=== PATIENT | female | born 1950 | race Caucasian/White ===

== ENCOUNTER 2018-12-01 04:40 | Inpatient (IN) | payer OTHER ==
[~2018-12-01] VITALS: Ht 157.5 cm; Wt 117.7 kg
[~2018-12-01 04:40] MED LIST: LOSARTAN POTAS100 MG; TRAMADOL50 MG
[2018-12-01 04:55] VITALS: Ht 157.5 cm; Wt 117.7 kg
--- NOTE | 2018-12-01 05:19 | NUR ---
PT PRESENTS TO ER TODAY WITH C/O OF CHEST PAIN THAT STARTED APPROX 5 HRS AGO. PT STATES THAT PAIN IS PRESSURE LIKE AND NON-RADIATING. PT RATES HER PAIN A 4/10. PT DENIES ANY SOB, PT LUNG SOUNDS ARE CLEAR IN ALL ENCARNACION WITH AUSCULTATION. PT ALSO REPORTS SHE WAS UNABLE TO SLEEP LAST NIGHT BECAUSE SHE WAS WORRIED ABOUT HER HIGH BP READING AT HOME. PT REPORTSHER BP WAS 147/106 AT HOME. PT IS A/O X4. RESP ARE EQUAL AND UNLABORED. NO ACUTE DISTRESS NOTED. FAMILY AT BEDSIDE.
[2018-12-01 05:30] LABS: BASOPHIL % 0.2 % (0-2); PLATELET COUNT 346 x10^3mcL (130-400)
[2018-12-01 05:32] LABS: RED CELL DISTRIBUTION WIDTH 16.3 % (11.5-14.5)
[2018-12-01 05:33] LABS: CALCIUM 8.2 mg/dL (8.5-10.1); CARBON DIOXIDE 23.8 mmol/L (21-32); CHLORIDE SERUM 106 mmol/L (98-107); CREATININE SERUM 0.9 mg/dL (0.6-1.0); GFR1 > 60 mL/min; GLUCOSE SERUM 112 mg/dL (74-106); POTASSIUM SERUM 4.1 mmol/L (3.5-5.1); SODIUM SERUM 141 mmol/L (136-145)
[2018-12-01 05:43] LABS: ALKALINE PHOSPHATASE 91 U/L (46-116); ALT/SGPT 14 U/L (14-59); AST/SGOT 13 U/L (15-37); BILIRUBIN TOTAL 0.4 mg/dL (0.20-1.00); TOTAL PROTEIN, SERUM 7.2 g/dL (6.4-8.2)
[2018-12-01] MEDS ORDERED: LEVOTHYROXIN0.025 M2 PO (06:21)
[2018-12-01] MEDS ORDERED: XARELTO20 M1 PO (06:21)
[2018-12-01] MEDS ORDERED: CARVEDILOL12.5 M1 PO (06:22)
--- NOTE | 2018-12-01 06:26 | NUR ---
PT REFUSING MORPHINE AT THS TIME. PT RATING HER PAIN A 2/10. MD BELLO MADE AWARE.
[2018-12-01] MEDS ORDERED: ROBAXIN500 MG PO (06:41)
--- NOTE | 2018-12-01 07:11 | NUR ---
TWO ATTEMPTS AT IV START WITHOUT SUCCESS.
--- NOTE | 2018-12-01 07:27 | NUR ---
REPORT RECEIVED, PT SITTING UPIN BED, IN NAD. DENIES ANY CP OR SOB AT THIS TIME, FAMILY AT BEDSIDE. IV INSERTED TO RT UPPER ARM , FIRST ATTEMPT,PT TOLERATED WELL. VSS. WAIITMG FOR DISPO. SAFETY PRECAUTIONS IN PLACE, WILL CONT TO MONITOR.
--- NOTE | 2018-12-01 08:29 | NUR ---
REPORT GIVEN TO LEXA BOWMAN, UPDATE DON STATUS, ALBS AND VITALS. PT STABLE FOR TRANSFER. PT IN NAD.
[2018-12-01 08:34] LABS: CHOLESTEROL/HDL RATIO 2.9; MAGNESIUM 2.3 mg/dL (1.8-2.4); PHOSPHOROUS 3.5 mg/dL (2.5-4.9)
--- NOTE | 2018-12-01 08:59 | NUR ---
RECEIVED PATIENT FROM ED. AWAKE/ALERT/ORIENTED X4, WALK WITH WALKER TO BATHROOM AND BACK TO BED VERY STEADY GAIT, NO WEAKNESS NOTED. C/O HEADACHE 01/12. INFORM PATIENT WILL GET PATIENT ADMITTED AND WILL GIVE SOMETHING FOR MONET, DTR AT BEDSIDE. TELE #17 PL[address] ON PATIENT, AFIB W/ HR 81, CONT TO MONITOR.
--- NOTE | 2018-12-01 10:27 | NUR ---
PATIENT SAT UP IN BED WITH FAMILY MEMBERS AT BEDSIDE, SOLID WASTE DISPOSAL MANAGER INTERVIEW PATIENT. NORCO 1 TAB AND ALL PO MEDS ADMINISTERED. MONET 01/12. PATIENT TOLERATED PILLS WELL. CONT TO MONITOR.
[2018-12-01 10:39] VITALS: BP 147/68
--- NOTE | 2018-12-01 11:00 | NUR ---
DR. ART ROUND WITH RESIDENT DISCUSS POC WITH PATIENT AND FAMILY MEMBERS AT BEDSIDE, PLAN FOR CARDIAC WORKUP AND CARDIO CONSULT.
[2018-12-01 13:10] VITALS: BP 105/51
--- NOTE | 2018-12-01 14:09 | NUR ---
PATIENT UP TO BATHROOM AND BACK TO BED, NO COMPLAIN. FAMILY MEMBER REMAIN AT BEDSIDE. PT TOLERATED CARDIAC DIET, NO N/V. CONT TO MONITOR.
[2018-12-01 16:28] VITALS: BP 116/56
--- NOTE | 2018-12-01 16:38 | NUR ---
PATIENT RESTING IN BED WITH FAMILY MEMBERS AT BEDSIDE, DR. GOLDBERG SEEN PATIENT FOR CONSULT AT THIS TIME.
--- NOTE | 2018-12-01 17:51 | NUR ---
PATIENT SAT UP IN CHAIR EATING HER DINNER NO COMPLAINS, FAMILY MEMBERS AT BEDSIDE. XARELTO PO ADMINISTERED. NEEDS MET. CALL LIGHT WITHIN REACH.
--- NOTE | 2018-12-01 19:45 | NUR ---
RECEIVED REPORT FROM AM NURSE. PT AAOX4, FOLLOW COMMANDS. ABLE TO MAKE NEEDS KNOWN. TELE#17 READING A-FIB. DENIES CP/PRESSURE. C/O HEADACHE RATES AT 5/10 PAIN. MEDICATED WITH PRN TYLENOL PER JUN. PALPABLE PULSES TO ALL EXTREMETIES. BLE PITTING EDEMA NOTED. LUNG SOUNDS CTA. BREATHING EVEN AND UNLABORED ON RA. NO SOB NOTED. NO ACUTE DISTRESS NOTED. ABD SOFT AND NONDISTENDED. ACTUVE BS X4 QUAD. DENIES N/V/D. LAST BM 12/01/18. VOIDS FREELY BRP. AMBULATORY. IV TO CORTEZ SL FLUSHING WELL. SITE FREE FROM REDNESS AND SWELLING. BED AT LOWEST SETTING. SIDE RAILS X2 UP. CALL LIGHT WITHING REACH. WILL CONTINUE TO MONITOR.
[2018-12-01 20:14] VITALS: BP 113/60
--- NOTE | 2018-12-01 21:40 | NUR ---
PT STATES RELIEF OF H/A PAIN. RATES PAIN AT 2/10. PT C/O ANXIETY. RECEIVED ORDER FROM DR WALKER FOR ATIVAN PO. MEDICATED WITH ATIVAN PRN PER JUN. WILL CONTINUE TO MONITOR.
--- NOTE | 2018-12-01 23:18 | NUR ---
PT C/O INSOMNIA, STATES FEELING VERY ANXIOUS. RECEIVED ORDER FROM DR WALKER FOR CURRY. ZELDAIEN GIVEN PER JUN. WILL CONTINUE TO MONITOR.
--- NOTE | 2018-12-02 00:09 | NUR ---
PT LAYING DOWN IN BED WITH EYES CLOSED. BREATHING EVEN AND UNLABORED ON RA. NO ACUTE DISTRESS NOTED. BED AT LOWEST SETTING. SIDE RAILS X2 UP. CALL LIGHT WHITHING REACH. WILL CONTINUE TO MONITOR.
[2018-12-02 02:27] LABS: UA SPECIFIC GRAVITY <=1.005 (1.005-1.035); microscopic required? YES; urine erythrocyte NEGATIVE (NEGATIVE)
[2018-12-02 02:44] LABS: AMPHETAMINE QUAL UR NONE DETECTED (See below)
[2018-12-02 05:39] VITALS: BP 137/80
--- NOTE | 2018-12-02 05:52 | NUR ---
PT SLEPT WELL THROGHOUT THE NIGHT. BREATHING EVEN AND UNLABORED ON RA. NO ACUTE DISTRESS NOTED. DENIES CP/PRESSURE. NO SIGNIFICANT CHANGE DURING SHIFT. ALL NEEDS ASSESSED AND ATTENDED TO. BED AT LOWEST SETTING. SIDE RAILS X2 UP. CALL LIGHT WITHING REACH. WILL ENDORSE CARE TO AM NURSE.
--- NOTE | 2018-12-02 07:17 | NUR ---
CARE ENDORSED TO MARILYNN BOWMAN.
[2018-12-02 07:19] LABS: BASOPHIL % 0.7 % (0-2); PLATELET COUNT 315 x10^3mcL (130-400)
--- NOTE | 2018-12-02 07:20 | NUR ---
RECEIVED PT FROM ROLLER PRESSER OPERATOR. PT AWAKE, ALERT. A/OX4. DENIES HEADACHE. PT ON ROOM AIR WITH NO RESP DISTRESS NOTED. PT ON TELE 17, DENIES CHEST PAIN. PERIPHERAL PULSES PALPABLE, 4+ EDEMA NOTED TO BLE. ACTIVE BS NOTED. PT DENIES ISSUES WITH ELIMINATION AT THIS TIME. PT AMBULATORY. IV ACCESS CORTEZ CDI. SAFETY MEASURES IN PLACE, BED LOW AND LOCKED. CALL LIGHT WITHIN REACH.
[2018-12-02 07:39] LABS: T3 TOTAL 0.73 ng/mL
[2018-12-02 07:48] LABS: RED CELL DISTRIBUTION WIDTH 16.9 % (11.5-14.5)
[2018-12-02 07:55] LABS: CALCIUM 8.3 mg/dL (8.5-10.1); CARBON DIOXIDE 25.1 mmol/L (21-32); CHLORIDE SERUM 106 mmol/L (98-107); CREATININE SERUM 0.8 mg/dL (0.6-1.0); GFR1 > 60 mL/min; GLUCOSE SERUM 74 mg/dL (74-106); MAGNESIUM 2.5 mg/dL (1.8-2.4); PHOSPHOROUS 3.9 mg/dL (2.5-4.9); POTASSIUM SERUM 4.1 mmol/L (3.5-5.1); SODIUM SERUM 143 mmol/L (136-145)
--- NOTE | 2018-12-02 08:40 | NUR ---
DUE MEDICATIONS ADMINISTERED ORDERED. PT TOLERATED WELL. FAMILY AT BEDSIDE. PT DENIES ANY CHEST PAIN AT THIS TIME.
[2018-12-02 08:46] VITALS: BP 141/69
[2018-12-02 08:52] LABS: FREE T4 1.23 ng/dL (0.76-1.46)
--- NOTE | 2018-12-02 10:16 | NUR ---
PT SITTING AT SIDE OF BED VISITING WITH FAMILY. NO ACUTE DISTRESS OR DISCOMFORT NOTED AT THIS TIME.
[2018-12-02 12:16] VITALS: BP 141/69
--- NOTE | 2018-12-02 12:29 | NUR ---
PT SITTING IN BED EATING LUNCH. PT COMPLAINING OF A HEADACHE 10/12. TYLENOL ADMINISTERED ORDERED PRN (SEE EMAR). WILL CONT TO MONITOR.
--- NOTE | 2018-12-02 13:14 | NUR ---
PT REPORTS HEADACHE IS BETTER. DISCHARGE INSTRUCTIONS/EDUCATION PROVIDED TO PATIENT AND FAMILY. PT TO FOLLOW UP WITH PCP WITH APPT GIVEN. IV ACCESS REMOVED WITH CATHETER INTACT. NO SWELLING OR BLEEDING NOTED. TELE REMOVED AND RETURNED TO IMPROVEMENT MANAGER. PT TAKEN TO PRIVATE AUTO BY WHEELCHAIR FOR DISCHARGE.
== END 2018-12-02 13:20 | disposition home or self-care (01) | DRG 206 ==
LOC: ED 04:40 → DU 07:56
PROVIDERS: Emergency Medicine; ADMIT Internal Medicine
DX: M94.0 Chondrocostal junction syndrome [Tietze] (principal); I48.2 Chronic atrial fibrillation; E87.6 Hypokalemia; E83.51 Hypocalcemia; I07.1 Rheumatic tricuspid insufficiency; I10 Essential (primary) hypertension; E03.9 Hypothyroidism, unspecified; F41.9 Anxiety disorder, unspecified; Z68.36 Body mass index [BMI] 36.0-36.9, adult; Z79.01 Long term (current) use of anticoagulants
CPT/HCPCS: 83880; 84439; G0378; Q0092

== ENCOUNTER 2019-05-29 15:43 | Emergency (ER) | payer OTHER ==
[~2019-05-29] VITALS: Ht 157.5 cm; Wt 113.4 kg
[~2019-05-29 15:43] MED LIST changes: +CARVEDILOL12.5 M1 PO; +LEVOTHYROXIN0.025 M2 PO; +ROBAXIN500 MG PO; +XARELTO20 M1 PO
[2019-05-29 15:48] VITALS: BP 138/84; Ht 157.5 cm; Wt 113.4 kg
== END 2019-05-29 16:55 | disposition left against medical advice (07) ==
LOC: ED 15:43
DX: Z53.21 Procedure and treatment not carried out due to patient leaving prior to being seen by health care provider (principal)